=== PATIENT | male | born 1985 | race Caucasian/White ===

== ENCOUNTER 2018-06-04 22:29 | Emergency (ER) | payer SELFPAY ==
[2018-06-04] MEDS ORDERED: fentaNYL PF VIAL 100 MCG/2 ML VIAL ONE (22:47)
[2018-06-04] MEDS ORDERED: fentaNYL PF VIAL 100 MCG/2 ML VIAL IV ONE (23:00)
[2018-06-04] MEDS ORDERED: IV NORMAL SALINE 1000ML BAG 1,000 ML IV ONE (23:00)
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
[2018-06-04 23:04] LABS: BASO # 0.1 x10^3/uL (0.0-0.2); BASO % 1 % (0-3); EOS # 0.4 x10^3/uL (0.0-0.7); EOS % 4 % (0-3); HEMATOCRIT 46.7 % (39.0-53.0); HEMOGLOBIN 16.2 g/dL (13.0-17.5); LYMPH # 3.1 x10^3/uL (1.0-4.8); LYMPH % 25 % (24-48); MEAN CORPUSCULAR HEMOGLOBIN 32 pg (25-35); MEAN CORPUSCULAR HGB CONC 35 g/dL (31-37); MEAN CORPUSCULAR VOLUME 93 fL (79-100); MONO # 0.6 x10^3/uL (0.0-1.1); MONO % 5 % (0-9); NEUT # 8.1 x10^3uL (1.8-7.7); NEUT % 66 % (31-73); PLATELET COUNT 204 x10^3/uL (140-400); RED BLOOD COUNT 5.04 x10^6/uL (4.30-5.70); RED CELL DISTRIBUTION WIDTH 13.5 % (11.5-14.5); WHITE BLOOD COUNT 12.3 x10^3/uL (4.0-11.0)
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
[2018-06-04 23:13] LABS: CALCIUM 9.4 mg/dL (8.5-10.1); CREATININE 1.2 mg/dL (0.7-1.3); GFR 69.3; POTASSIUM 3.8 mmol/L (3.5-5.1)
[2018-06-04] MEDS ORDERED: DIPHTH,PERTUSS(ACELL),TET TOX 0.5 ML DISP.SYRIN. VAX IM ONE (23:15)
[2018-06-04 23:19] LABS: DIRECT BILIRUBIN 0.1 mg/dL (0.0-0.2); TOTAL BILIRUBIN 0.4 mg/dL (0.2-1.0); TOTAL PROTEIN 7.9 g/dL (6.4-8.2)
[2018-06-04] MEDS ORDERED: IOHEXOL 300 MG/ML 100ML VIAL. IV ONE (23:30)
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
[2018-06-04] MEDS ORDERED: CONTRAST GIVEN. MC PRN (23:45)
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
[2018-06-05] MEDS ORDERED: MORPHINE SULFATE 10 MG/ML VIAL. ONE (00:09)
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
[2018-06-05] MEDS ORDERED: LIDOCAINE 1% PF 30 ML VIAL. INJ ONE (00:15)
[2018-06-05] MEDS ORDERED: MORPHINE SULFATE 10 MG/ML VIAL. IV ONE ×2 (00:15→01:15)
[2018-06-05] MEDS ORDERED: IV RINGERS,LACTATED 1000ML 1,000 ML IV ONE (00:45)
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
== END 2018-06-05 02:25 | disposition short-term general hospital (02) ==
LOC: ER 22:29
DX: S92.002A Unspecified fracture of left calcaneus, initial encounter for closed fracture (principal); S51.011A Laceration without foreign body of right elbow, initial encounter; S01.511A Laceration without foreign body of lip, initial encounter; S20.319A Abrasion of unspecified front wall of thorax, initial encounter; S80.812A Abrasion, left lower leg, initial encounter; S80.811A Abrasion, right lower leg, initial encounter; W22.8XXA Striking against or struck by other objects, initial encounter; Y93.89 Activity, other specified; Y92.89 Other specified places as the place of occurrence of the external cause; Y99.8 Other external cause status
CPT/HCPCS: 36415; 70450; 71045; 71260; 72125; 72170; 73080; 73590; 73610; 74177; 80048; 80076; 83605; 83690; 85025; 86850; 86900; 86901; 90471; 90715; 96374; 96375; 96376; 99285; G0480; J2270; J3010; J7030; Q9967; J7120